=== PATIENT | female | born 1985 | race Caucasian/White ===

== ENCOUNTER → 2024-07-29 10:25 | Outpatient (REF) | payer OTHER, SELFPAY | LOC: PNTC 10:25 | PROVIDERS: ATTENDING PHYSICIAN Obstetrics & Gynecology | DX: Z36.0 Encounter for antenatal screening for chromosomal anomalies (principal); Z36.82 Encounter for antenatal screening for nuchal translucency | CPT/HCPCS: 76801; 76813 ==

== ENCOUNTER → 2024-08-20 08:56 | Outpatient (REF) | payer OTHER, SELFPAY | LOC: PNTC 08:56 | PROVIDERS: ATTENDING PHYSICIAN Obstetrics & Gynecology | DX: O09.522 Supervision of elderly multigravida, second trimester (principal); O99.212 Obesity complicating pregnancy, second trimester; O99.842 Bariatric surgery status complicating pregnancy, second trimester; O35.5XX0 Maternal care for (suspected) damage to fetus by drugs, not applicable or unspecified | CPT/HCPCS: 76805 ==

== ENCOUNTER → 2024-09-22 08:58 | Outpatient (REF) | payer OTHER, SELFPAY | LOC: PNTC 08:58 | PROVIDERS: ATTENDING PHYSICIAN Obstetrics & Gynecology | DX: O09.529 Supervision of elderly multigravida, unspecified trimester (principal); O99.842 Bariatric surgery status complicating pregnancy, second trimester; O99.212 Obesity complicating pregnancy, second trimester; O35.5XX0 Maternal care for (suspected) damage to fetus by drugs, not applicable or unspecified | CPT/HCPCS: 76811 ==

== ENCOUNTER → 2024-10-28 13:28 | Outpatient (REF) | payer OTHER, SELFPAY | LOC: PNTC 13:28 | PROVIDERS: ATTENDING PHYSICIAN Obstetrics & Gynecology | DX: O09.529 Supervision of elderly multigravida, unspecified trimester (principal) | CPT/HCPCS: 76816 ==

== ENCOUNTER → 2024-12-10 10:58 | Outpatient (REF) | payer OTHER, SELFPAY | LOC: PNTC 10:58 | PROVIDERS: ATTENDING PHYSICIAN Obstetrics & Gynecology | DX: O09.529 Supervision of elderly multigravida, unspecified trimester (principal) | CPT/HCPCS: 76816 ==

== ENCOUNTER → 2024-12-28 11:02 | Outpatient (REF) | payer OTHER, SELFPAY | LOC: PNTC 11:02 | PROVIDERS: ATTENDING PHYSICIAN Obstetrics & Gynecology | DX: O09.529 Supervision of elderly multigravida, unspecified trimester (principal) | CPT/HCPCS: 59025; 76815 ==

== ENCOUNTER → 2025-01-04 11:09 | Outpatient (REF) | payer OTHER, SELFPAY | LOC: PNTC 11:09 | PROVIDERS: ATTENDING PHYSICIAN Obstetrics & Gynecology | DX: O09.529 Supervision of elderly multigravida, unspecified trimester (principal) | CPT/HCPCS: 59025; 76815 ==

== ENCOUNTER → 2025-01-11 13:36 | Outpatient (REF) | payer OTHER, SELFPAY | LOC: PNTC 13:36 | PROVIDERS: ATTENDING PHYSICIAN Obstetrics & Gynecology | DX: O09.529 Supervision of elderly multigravida, unspecified trimester (principal) | CPT/HCPCS: 59025; 76816 ==

== ENCOUNTER → 2025-01-18 10:56 | Outpatient (REF) | payer OTHER, SELFPAY | LOC: PNTC 10:56 | PROVIDERS: ATTENDING PHYSICIAN Obstetrics & Gynecology | DX: O99.212 Obesity complicating pregnancy, second trimester (principal); O09.522 Supervision of elderly multigravida, second trimester; Z98.84 Bariatric surgery status | CPT/HCPCS: 59025; 76815 ==

== ENCOUNTER → 2025-01-25 11:02 | Outpatient (REF) | payer OTHER, SELFPAY | LOC: PNTC 11:02 | PROVIDERS: ATTENDING PHYSICIAN Student in an Organized Health Care Education/Training Program | DX: O99.213 Obesity complicating pregnancy, third trimester (principal); O09.523 Supervision of elderly multigravida, third trimester; Z98.84 Bariatric surgery status | CPT/HCPCS: 59025; 76815 ==

== ENCOUNTER 2025-01-28 08:37 | Inpatient (IN) | payer OTHER, SELFPAY ==
[2025-01-28 08:43] VITALS: BMI 42.4
[2025-01-28 09:01] VITALS: BP 117/80
[2025-01-28 09:55] LABS: Hematocrit 32.5 % (37.0-47.0); Hemoglobin 10.2 g/dL (12.0-16.0); Mean Corp Hgb Conc. 31.4 g/dL (33.0-37.0); Mean Corpuscular Volume 87.1 fL (81.0-99.0); Nucleated Red Blood Cells % 0 %; Platelet Count 255 10^3/uL (130-400); Red Cell Dist. Width 14.1 % (11.5-14.5)
[2025-01-28] MEDS: CYTOTEC 25 MICROGRAM VAG (14:32)
[2025-01-28] MEDS: CYTOTEC 50 MICROGRAM PO (18:19)
[2025-01-28] MEDS: STADOL 1 MG IV ×2 (21:27→23:06)
[2025-01-28] MEDS: CYTOTEC PO (23:08)
[2025-01-29] MEDS: STADOL 1 MG IV ×2 (02:30→09:11)
[2025-01-29] MEDS: PITOCIN 30 UNITS/NSS 500 ML IV (09:14)
[2025-01-29] MEDS: FENTANYL/BUPIVACAINE 100 EPIDURAL ×2 (11:46→19:33)
[2025-01-29] MEDS: SUBLIMAZE 100 MCG EPIDURAL (11:46)
[2025-01-29] MEDS: LR 1000 IV (14:42)
[2025-01-29] MEDS: CYTOTEC 800 MCG RECTAL (21:35)
[2025-01-30 04:50] LABS: Hematocrit 28.2 % (37.0-47.0); Hemoglobin 8.8 g/dL (12.0-16.0)
[2025-01-30] MEDS: COLACE 100 MG PO ×2 (09:30→20:48)
[2025-01-30] MEDS: LEXAPRO 20 MG PO (09:30)
[2025-01-30] MEDS: PRENATAL PLUS 1 TABLET PO (09:30)
[2025-01-30] MEDS: FEOSOL 325 MG PO (16:35)
[2025-01-31] MEDS: LEXAPRO 20 MG PO (08:52)
[2025-01-31] MEDS: COLACE 100 MG PO (08:52)
[2025-01-31] MEDS: PRENATAL PLUS 1 TABLET PO (08:52)
[2025-01-31] MEDS: FEOSOL 325 MG PO (08:52)
[2025-02-02 13:59] LABS: Syphilis/T. pallidum Ab Reflex Negative (Negative)
== END 2025-01-31 11:55 | disposition home or self-care (01) | DRG 807 ==
LOC: LDRP 08:37
PROVIDERS: Student in an Organized Health Care Education/Training Program; ADMITTING PHYSICIAN Obstetrics & Gynecology
PROC: 3E0P7VZ Introduction of Hormone into Female Reproductive, Via Natural or Artificial Opening (ICD-10-PCS; 2025-01-29)
PROC: 10907ZC Drainage of Amniotic Fluid, Therapeutic from Products of Conception, Via Natural or Artificial Opening (ICD-10-PCS; 2025-01-29)
PROC: 10E0XZZ Delivery of Products of Conception, External Approach (ICD-10-PCS; 2025-01-29)
PROC: 0KQM0ZZ Repair Perineum Muscle, Open Approach (ICD-10-PCS; 2025-01-29)
DX: O64.1XX0 Obstructed labor due to breech presentation, not applicable or unspecified (principal); Z37.0 Single live birth; Z3A.39 39 weeks gestation of pregnancy; O76 Abnormality in fetal heart rate and rhythm complicating labor and delivery; O70.9 Perineal laceration during delivery, unspecified
CPT/HCPCS: 36415; 85014; 85018; 85025; 86780; 86850; 86900; 86901; 88304; 88307